=== PATIENT | female | born 1945 | race Hispanic/Latino ===

== ENCOUNTER 2021-12-17 17:09 | Emergency (ER) | payer MEDICARE, OTHER ==
[2021-12-17] MEDS ORDERED: Bupivacaine PF 0.5% 30 ML VIAL ONE (18:08)
== END 2021-12-17 18:28 | disposition home or self-care (01) ==
LOC: CSHERS 17:09
DX: M54.2 Cervicalgia (principal); H92.01 Otalgia, right ear; E11.9 Type 2 diabetes mellitus without complications; I10 Essential (primary) hypertension
CPT/HCPCS: 99283; S0020

== ENCOUNTER 2022-07-30 18:45 | Emergency (ER) | payer OTHER ==
[2022-07-30] MEDS ORDERED: Acetaminophen 500 MG TAB ONE (20:44)
[2022-07-30 20:48] LABS: ALT (SGPT) 14 U/L (8-55); AST (SGOT) 27 U/L (5-34); Albumin 3.9 g/dL (3.4-4.8); Alkaline Phosphatase 76 U/L (40-110); Anion Gap 13 mmol/L (10-20); BUN (Urea Nitrogen) 27 mg/dL (9.8-20.1); Bilirubin, Total 0.5 mg/dL (0.2-1.2); CK (CPK) 641 U/L (29-168); Calc. Creatinine Clearance 0 mL/min (70-130); Calcium 9.9 mg/dL (7.8-10.44); Carbon Dioxide 25 mmol/L (23-31); Chloride 100 mmol/L (98-107); Estimated GFR 63; Globulin 3.3 g/dL (2.4-3.5); Glucose 216 mg/dL (83-110); Potassium 4.2 mmol/L (3.5-5.1); Protein, Total 7.2 g/dL (5.8-8.1); Sodium 134 mmol/L (136-145)
[2022-07-30 20:54] LABS: #Monocytes 0.6 10x3/uL (0.0-1.1); #Neutrophils 5.8 10x3/uL (1.5-8.4); %Basophils 0.3 % (0.0-2.0); %Eosinophils 0.1 % (0.0-6.0); %Monocytes 8.3 % (0.0-10.0); Hemoglobin 11.8 g/dL (12.0-15.5); Mean Corpuscular HGB CONC 33.1 g/dL (32.0-36.0); Mean Corpuscular Hemoglobin 27.7 pg (27.0-33.0); Mean Corpuscular Volume 83.6 fl (81.6-98.3); Mean Platelet Volume 12.6 fl (7.4-10.4); Platelet Count 64 10x3/uL (150-450); RBC Distribution Width 15.3 % (11.5-14.5); Red Blood Cell (RBC) Count 4.26 10x6/uL (3.90-5.03); White Blood Cell (WBC) Count 6.9 10x3/uL (3.5-10.5)
[2022-07-30 22:21] LABS: Bilirubin Neg (Negative); Blood, Urine 150 (Negative); Clarity Cloudy (Clear); Glucose, Urine (Dipstick) Normal (Negative); Ketone, Urine Negative (Negative); Leukocyte 500 (Negative); Nitrite Positive (Negative); Protein, Urine (Dipstick) 100 mg/dl (Neg-Trace); Urobilinogen Normal mg/dL (Less than 2)
[2022-07-30 22:31] LABS: Bacteria/HPF 3+ HPF (None Seen); Squamous Epithelial 0-3 HPF (0-3); WBC/HPF 21-50 HPF (0-3)
[2022-07-30] MEDS ORDERED: Sulfameth/Trimethoprim DS 800-160mg TAB ONE (23:10)
== END 2022-07-31 00:05 | disposition home or self-care (01) ==
LOC: CSHERS 18:45
DX: N30.01 Acute cystitis with hematuria (principal); M51.36 Other intervertebral disc degeneration, lumbar region; M19.09 Primary osteoarthritis, other specified site; E78.5 Hyperlipidemia, unspecified; I10 Essential (primary) hypertension; E11.40 Type 2 diabetes mellitus with diabetic neuropathy, unspecified
CPT/HCPCS: 72192; 80053; 81003; 81015; 82550; 85025; 87077; 87086

== ENCOUNTER 2023-04-30 11:47 | Emergency (ER) | payer OTHER ==
[2023-04-30] MEDS ORDERED: Acetaminophen 500 MG TAB ONE (12:16)
== END 2023-04-30 15:13 | disposition home or self-care (01) ==
LOC: CSHERS 11:47
DX: M17.11 Unilateral primary osteoarthritis, right knee (principal); R60.0 Localized edema; I10 Essential (primary) hypertension; E11.40 Type 2 diabetes mellitus with diabetic neuropathy, unspecified
CPT/HCPCS: 93970

== ENCOUNTER 2023-06-29 05:10 | Inpatient (IN) | payer OTHER, MEDICAID, MEDICARE ==
[2023-06-29] MEDS ORDERED: Propofol 1,000 MG/100 ML VIAL IV ONE (05:25)
[2023-06-29] MEDS ORDERED: Pantoprazole 40 MG VIAL ONE ×2 (05:25→06:15)
[2023-06-29] MEDS ORDERED: LevoFLOXacin 750 mg/D5W 150 ml Premix Bag ONE ×2 (05:40→06:15)
[2023-06-29] MEDS ORDERED: Midazolam HCl 10 mg/2 ml Vial ONE (05:42)
[2023-06-29] MEDS ORDERED: fentaNYL 50 mcg/mL 1 mL Vial ONE (05:43)
[2023-06-29] MEDS ORDERED: Clindamycin/D5W 600 MG in Premix 1 BAG IVPB SCH (05:45)
[2023-06-29] MEDS ORDERED: Acetaminophen 650 MG Suppository ONE (05:49)
[2023-06-29 06:09] LABS: Prothrombin Time 10.6 sec (9.5-12.1)
[2023-06-29 06:10] LABS: Hematocrit 35.2 % (34.9-44.5); Hemoglobin 12.2 g/dL (12.0-15.5); Mean Corpuscular HGB CONC 34.7 g/dL (32.0-36.0); Mean Corpuscular Volume 86.7 fl (81.6-98.3); Mean Platelet Volume 13.2 fl (7.4-10.4); Platelet Count 41 10x3/uL (150-450); RBC Distribution Width 13.2 % (11.5-14.5); Red Blood Cell (RBC) Count 4.06 10x6/uL (3.90-5.03); White Blood Cell (WBC) Count 4.8 10x3/uL (3.5-10.5)
[2023-06-29 06:13] LABS: ALT (SGPT) 18 U/L (8-55); AST (SGOT) 26 U/L (5-34); Albumin 3.7 g/dL (3.4-4.8); Alkaline Phosphatase 81 U/L (40-110); Anion Gap 17 mmol/L (10-20); BUN (Urea Nitrogen) 34 mg/dL (9.8-20.1); Bilirubin, Total 0.4 mg/dL (0.2-1.2); Calc. Creatinine Clearance 0 mL/min (70-130); Carbon Dioxide 18 mmol/L (23-31); Chloride 105 mmol/L (98-107); Estimated GFR 57; Glucose 244 mg/dL (83-110); Lipase 14 U/L (8-78); Potassium 4.6 mmol/L (3.5-5.1); Protein, Total 6.7 g/dL (5.8-8.1); Sodium 135 mmol/L (136-145)
[2023-06-29] MEDS ORDERED: Pantoprazole 80 MG, Admixture Fee 1 EACH in Sodium Chloride 0.9% 100 ML IVPB SCH (06:15)
[2023-06-29 06:20] LABS: ALV-art Gradient 467.075 mmHg (0-20); Actual Bicarbonate (HCO3a) 19.3 mEq/L (22-28); Analyzer IN Cardio CS ER; CO2 Tension 30.1 mmHg (35.0-45.0); Carboxyhemoglobin (COHb) 0.3 gm% (0.0-3.0); Hematocrit-ABG 37 % (36.0-47.0); Hemoglobin (Hb) 12.5 g/dL (12.0-16.0); O2 Tension (PaO2), arterial 65.7 mmHg (> 70.0); Potassium - ABG Lab 4.03 mmol/L (3.70-5.30); Puncture Site LBA; pH, Arterial 7.425 (7.35-7.45)
[2023-06-29 06:24] LABS: MDiff Complete? YES
[2023-06-29 06:30] LABS: Critical Call Chem Troponin I NUR.EG @0627; Troponin I 1.065 ng/mL (< 0.028)
[2023-06-29 06:36] LABS: Bilirubin Neg (Negative); Blood, Urine 50 (Negative); Glucose, Urine (Dipstick) 250 mg/dL (Negative); Ketone, Urine 5 mg/dL (Negative); Leukocyte 500 (Negative); Nitrite Positive (Negative); Protein, Urine (Dipstick) 100 mg/dl (Neg-Trace); Specific Gravity, Urine 1.015 (1.005-1.030); Urobilinogen Normal mg/dL (Less than 2)
[2023-06-29 06:46] LABS: Platelet Adequacy Comment Appears Decreased; RBC Morph Comment Within Normal Limits
[2023-06-29 06:49] LABS: Band 14 % (5-11); Lymphocytes 21 % (21-51); Metamyelocyte 2 % (0-0); Monocytes 4 % (0-10); Neutrophil 59 % (42-75)
[2023-06-29 06:58] LABS: Clarity Hazy (Clear)
[2023-06-29 06:59] LABS: RBC/HPF 0-3 HPF (0-3)
[2023-06-29 07:00] LABS: Bacteria/HPF 4+ HPF (None Seen); CAUTI Indications for Culture Alt mental st,lethar; Squamous Epithelial 0-3 HPF (0-3)
[2023-06-29 07:02] LABS: Urine Culture Reflex Yes Yes
[2023-06-29 07:09] LABS: Influenza A by NAA DETECTED (NotDetected); Influenza B by NAA Not Detected (NotDetected); RSV by NAA Not Detected (NotDetected); SARS-CoV-2 NAA Rapid Test Not Detected (NotDetected)
[2023-06-29] MEDS ORDERED: Vancomycin 1.5 GM in Sodium Chloride 0.9% 500 ML IVPB SCH (07:15)
[2023-06-29] MEDS ORDERED: LevoFLOXacin 750 mg/D5W 750 MG in Premix 1 BAG IVPB SCH (07:15)
[2023-06-29] MEDS ORDERED: Dextrose 5% in Water 1,000 ML IV PRN (07:34)
[2023-06-29] MEDS ORDERED: Dextrose 50% Abboject 50 ML SYRINGE SLOW IVP PRN (07:34)
[2023-06-29 07:47] LABS: Magnesium 1.6 mg/dL (1.6-2.6)
[2023-06-29] MEDS ORDERED: Aspirin 300 MG Suppository PR SCH ×2 (09:00)
[2023-06-29 09:40] LABS: Lactic Acid 3.4 mmol/L (0.5-2.2)
[2023-06-29 09:49] LABS: Hematocrit 35.4 % (34.9-44.5); Hemoglobin 12.2 g/dL (12.0-15.5)
[2023-06-29 09:59] LABS: Troponin I 9.504 ng/mL (< 0.028)
[2023-06-29] MEDS: DEXMEDETOMIDINE IVPB SCH ×2 (11:28→12:07)
[2023-06-29] MEDS: NACL IVPB SCH ×2 (11:28→12:07)
[2023-06-29] MEDS ORDERED: Iopamidol 300 61% 100 ML VIAL FS ONE (11:29)
[2023-06-29] MEDS: Cefepime 2 GM in Sodium Chloride 0.9% 100 ML IVPB SCH ×2 (11:34→23:44)
[2023-06-29] MEDS: VANCOMYCIN 1.25 GM/250 ML BAG 1.25 GM in Premix 1 BAG IVPB SCH (11:35)
[2023-06-29] MEDS: Sodium Chloride 0.9% 1,000 ML IV SCH ×2 (11:35)
[2023-06-29] MEDS: Oseltamivir 6 MG/ML ORAL SUSP PO SCH (12:21)
[2023-06-29] MEDS: Lorazepam 2 MG/ML VIAL SLOW IVP PRN (12:25)
[2023-06-29] MEDS ORDERED: Fentanyl BOLUS 250 ML IVPB PRN (12:30)
[2023-06-29] MEDS ORDERED: FENTANYL 2,000MCG/100-0.9%NACL 100 ML IVPB SCH (12:30)
[2023-06-29] MEDS ORDERED: Propofol BOLUS 1,000 MG/100 ML VIAL IV PRN (12:30)
[2023-06-29 12:44] LABS: Anion Gap 12 mmol/L (10-20); BUN (Urea Nitrogen) 29 mg/dL (9.8-20.1); Calc. Creatinine Clearance 46 mL/min (70-130); Carbon Dioxide 21 mmol/L (23-31); Chloride 108 mmol/L (98-107); Estimated GFR 57; Glucose 201 mg/dL (83-110); Potassium 4.7 mmol/L (3.5-5.1); Sodium 136 mmol/L (136-145)
[2023-06-29 12:48] LABS: Hematocrit 31.6 % (34.9-44.5); Hemoglobin 10.7 g/dL (12.0-15.5); Platelet Count 46 10x3/uL (150-450)
[2023-06-29 12:53] LABS: Troponin I 12.907 ng/mL (< 0.028)
[2023-06-29 12:56] LABS: Actual Bicarbonate (HCO3a) 15.7 mEq/L (22-28); Analyzer IN Cardio CS ICU; CO2 Tension 26.8 mmHg (35.0-45.0); Calcium, Ionized (arterial) 1.12 mmol/L (1.12-1.30); Carboxyhemoglobin (COHb) 0.3 gm% (0.0-3.0); Hematocrit-ABG 34 % (36.0-47.0); Hemoglobin (Hb) 11.4 g/dL (12.0-16.0); O2 Tension (PaO2), arterial 80.5 mmHg (> 70.0); Potassium - ABG Lab 4.25 mmol/L (3.70-5.30); Puncture Site LBA; pH, Arterial 7.385 (7.35-7.45)
[2023-06-29] MEDS: Propofol 1,000 MG/100 ML VIAL IV PRN (13:12)
[2023-06-29] MEDS: Acetaminophen 650 MG Suppository PR PRN (13:40)
[2023-06-29] MEDS: Sodium Bicarb 50 mEq/50 ML VIAL IVP SCH (13:40)
[2023-06-29] MEDS: Aspirin 300 MG Suppository PR SCH (14:54)
[2023-06-29] MEDS: NOREPINEPHRINE 8 MG/250 ML-D5W 250 ML IVPB SCH (15:35)
[2023-06-29] MEDS: Pantoprazole 80 MG in Sodium Chloride 0.9% 100 ML IVP SCH (15:58)
[2023-06-30] MEDS: Pantoprazole 40 MG VIAL IVP SCH (03:11)
[2023-06-30 03:44] LABS: Anion Gap 16 mmol/L (10-20); BUN (Urea Nitrogen) 25 mg/dL (9.8-20.1); Calc. Creatinine Clearance 50 mL/min (70-130); Calcium 7.8 mg/dL (7.8-10.44); Carbon Dioxide 17 mmol/L (23-31); Chloride 112 mmol/L (98-107); Estimated GFR 63; Glucose 173 mg/dL (83-110); Potassium 3.9 mmol/L (3.5-5.1); Sodium 141 mmol/L (136-145)
[2023-06-30 04:24] LABS: Mean Corpuscular HGB CONC 34.3 g/dL (32.0-36.0); Mean Corpuscular Hemoglobin 30.1 pg (27.0-33.0); Mean Corpuscular Volume 87.7 fl (81.6-98.3); Mean Platelet Volume 12.7 fl (7.4-10.4); Platelet Count 80 10x3/uL (150-450); RBC Distribution Width 13.7 % (11.5-14.5); Red Blood Cell (RBC) Count 3.99 10x6/uL (3.90-5.03); White Blood Cell (WBC) Count 10.2 10x3/uL (3.5-10.5)
[2023-06-30 04:30] LABS: MDiff Complete? YES
[2023-06-30 04:51] LABS: Band 42 % (5-11); Lymphocytes 4 % (21-51); Metamyelocyte 27 % (0-0); Monocytes 3 % (0-10); Myelocyte 6 % (0-0); Neutrophil 15 % (42-75); Reactive Lymphocytes 3 % (0-10)
[2023-06-30 04:54] LABS: Reflex for Review?? YES
[2023-06-30 04:55] LABS: Platelet Adequacy Comment Appears Decreased
[2023-06-30] MEDS: Oseltamivir 6 MG/ML ORAL SUSP PO SCH (07:33)
[2023-06-30] MEDS: HumaLOG 300 UNITS/3 ML VIAL SC PRN (08:20)
[2023-06-30 10:46] LABS: Troponin I 12.463 ng/mL (< 0.028)
[2023-06-30] MEDS: Vancomycin 1 GM in Sodium Chloride 0.9% 250 ML 250 ML IVPB SCH (12:06)
[2023-06-30] MEDS ORDERED: EPINEPHrine 1 MG/10 ML Abboject SYRINGE ONE (12:33)
[2023-06-30] MEDS ORDERED: Communication Order-Pharmacy FS SCH (12:45)
[2023-07-01 03:31] LABS: INR-International Normal Ratio 1.3; PTT 47.3 sec (22.0-33.0); Prothrombin Time 13.5 sec (9.5-12.1)
[2023-07-01] MEDS ORDERED: Lidocaine 1% (PF) 30 ML VIAL ONE (06:34)
[2023-07-01] MEDS ORDERED: Verapamil 5 MG/2 ML VIAL ONE (06:34)
[2023-07-01] MEDS ORDERED: Heparin 10,000 UNITS/ 10 ML VIAL ONE (06:34)
[2023-07-01] MEDS ORDERED: Adenosine 6 mg (2 mL) VIAL ONE (06:34)
[2023-07-01] MEDS ORDERED: Atropine Sulfate 1 mg/1 ml Vial ONE (06:34)
[2023-07-01] MEDS ORDERED: Nitroglycerin 50 MG/250 ML BOT 250 ML ONE (06:34)
[2023-07-01] MEDS ORDERED: TICAGRELOR 90 MG TABLET ONE (07:14)
[2023-07-01] MEDS ORDERED: Nitroglycerin 0.4 MG TAB (25 Tab Bottle) SL PRN (09:04)
[2023-07-01] MEDS ORDERED: Sodium Chloride 0.9% 200 ML IV PRN (09:04)
[2023-07-01] MEDS ORDERED: Acetaminophen/Codeine 30-300mg Tablet PO PRN ×2 (09:04)
[2023-07-01] MEDS ORDERED: Iopamidol 300 61% 100 ML VIAL FS ONE (09:28)
[2023-07-01] MEDS: Oseltamivir 6 MG/ML ORAL SUSP PO SCH (10:05)
[2023-07-01 11:19] LABS: Vancomycin, Trough 7.7 ug/mL
[2023-07-01] MEDS: TICAGRELOR 90 MG TABLET PO SCH (21:09)
[2023-07-02] MEDS: Vancomycin 1 GM in Sodium Chloride 0.9% 250 ML 250 ML IVPB SCH (00:22)
[2023-07-02 05:22] LABS: Anion Gap 9 mmol/L (10-20); BUN (Urea Nitrogen) 18 mg/dL (9.8-20.1); Calc. Creatinine Clearance 61 mL/min (70-130); Calcium 7.7 mg/dL (7.8-10.44); Carbon Dioxide 18 mmol/L (23-31); Chloride 114 mmol/L (98-107); Estimated GFR 78; Glucose 243 mg/dL (83-110); Potassium 3.2 mmol/L (3.5-5.1); Sodium 138 mmol/L (136-145)
[2023-07-02 05:37] LABS: Analyzer IN Cardio CS ICU; Base Excess (BEa) -2.8 mEq/L (-2.0 to +3.0); CO2 Tension 27.8 mmHg (35.0-45.0); Calcium, Ionized (arterial) 1.17 mmol/L (1.12-1.30); Carboxyhemoglobin (COHb) 0.3 gm% (0.0-3.0); Critical Notified By: CP.PH; Hematocrit-ABG 28 % (36.0-47.0); Hemoglobin (Hb) 9.6 g/dL (12.0-16.0); O2 Tension (PaO2), arterial 84.1 mmHg (> 70.0); Puncture Site LBA; RapidComm Collect By CP.PH; pH, Arterial 7.474 (7.35-7.45)
[2023-07-02] MEDS: Potassium Chloride 40 MEQ in Premix 1 BAG IVPB SCH (08:56)
[2023-07-02 09:53] LABS: Hematocrit 19.1 % (34.9-44.5); Mean Corpuscular HGB CONC 34.6 g/dL (32.0-36.0); Mean Corpuscular Hemoglobin 29.3 pg (27.0-33.0); Mean Corpuscular Volume 84.9 fl (81.6-98.3); Mean Platelet Volume 12.3 fl (7.4-10.4); RBC Distribution Width 13.8 % (11.5-14.5); Red Blood Cell (RBC) Count 2.25 10x6/uL (3.90-5.03)
[2023-07-02 09:54] LABS: MDiff Complete? YES; Platelet Count 30 10x3/uL (150-450)
[2023-07-02 11:10] LABS: Band 2 % (5-11); Lymphocytes 6 % (21-51); Metamyelocyte 8 % (0-0); Neutrophil 84 % (42-75)
[2023-07-02 11:25] LABS: Platelet Adequacy Comment Appears Decreased
[2023-07-02 11:26] LABS: RBC Morph Comment Within Normal Limits
[2023-07-02 11:37] LABS: Hemoglobin 6.6 g/dL (12.0-15.5)
[2023-07-02] MEDS: Vancomycin HCl 750 MG in Sodium Chloride 0.9% 250 ML 250 ML IVPB SCH (11:41)
[2023-07-02 11:42] LABS: Hematocrit 20.9 % (34.9-44.5); Hemoglobin 7.5 g/dL (12.0-15.5)
[2023-07-02 11:43] LABS: Platelet Count 33 10x3/uL (150-450)
[2023-07-02] MEDS: Atorvastatin Calcium 40 MG TAB PO SCH (20:10)
[2023-07-02] MEDS: Metoprolol Tartrate 25 MG TAB PO SCH (20:10)
[2023-07-02 22:10] LABS: Vancomycin, Trough 23.9 ug/mL
[2023-07-03 03:04] LABS: Anion Gap 12 mmol/L (10-20); BUN (Urea Nitrogen) 19 mg/dL (9.8-20.1); Calc. Creatinine Clearance 58 mL/min (70-130); Calcium 7.9 mg/dL (7.8-10.44); Carbon Dioxide 17 mmol/L (23-31); Cardiac Risk 9.3 (Less than 4.5); Chloride 116 mmol/L (98-107); Cholesterol 102 mg/dl (< 200 Desired); Estimated GFR 74; Glucose 240 mg/dL (83-110); HDL Cholesterol 11 mg/dL (>60 Neg Risk); LDL Cholesterol, Calculated 56 mg/dL; Potassium 3.5 mmol/L (3.5-5.1); Sodium 141 mmol/L (136-145); Triglycerides 174 mg/dL (Less than 150)
[2023-07-03 03:35] LABS: #Monocytes 0.4 10x3/uL (0.0-1.1); #Neutrophils 4.5 10x3/uL (1.5-8.4); %Basophils 0.2 % (0.0-2.0); %Lymphocytes 8.7 % (18.0-47.0); %Monocytes 7.2 % (0.0-10.0); %Neutrophils 82.6 % (40.0-75.0); Hematocrit 24.1 % (34.9-44.5); Hemoglobin 8.5 g/dL (12.0-15.5); Mean Corpuscular HGB CONC 35.3 g/dL (32.0-36.0); Mean Corpuscular Hemoglobin 29.3 pg (27.0-33.0); Mean Corpuscular Volume 83.1 fl (81.6-98.3); Mean Platelet Volume 12.2 fl (7.4-10.4); Platelet Count 38 10x3/uL (150-450); RBC Distribution Width 14.5 % (11.5-14.5); White Blood Cell (WBC) Count 5.4 10x3/uL (3.5-10.5)
[2023-07-03 04:05] LABS: Actual Bicarbonate (HCO3a) 19.2 mEq/L (22-28); Analyzer IN Cardio CS ICU; Base Excess (BEa) -2.3 mEq/L (-2.0 to +3.0); CO2 Tension 22.8 mmHg (35.0-45.0); Calcium, Ionized (arterial) 1.17 mmol/L (1.12-1.30); Carboxyhemoglobin (COHb) 0.2 gm% (0.0-3.0); Hematocrit-ABG 26 % (36.0-47.0); Hemoglobin (Hb) 8.9 g/dL (12.0-16.0); Puncture Site RRA; pH, Arterial 7.544 (7.35-7.45)
[2023-07-03] MEDS: Vancomycin HCl 750 MG in Sodium Chloride 0.9% 250 ML 250 ML IVPB SCH (09:26)
[2023-07-03] MEDS: Insulin NPH Human Isophane 100 UNITS/ML (10 ML VIAL) SC SCH (09:27)
[2023-07-03] MEDS: Aspirin 81 mg Enteric Coated Tablet PO SCH (09:28)
[2023-07-03] MEDS: QUEtiapine 25 MG TAB PO SCH (09:28)
[2023-07-03] MEDS: Acetaminophen 650 MG/20.3 ML UDCUP PO PRN (13:16)
[2023-07-03] MEDS: Metoprolol Tartrate 50 MG TAB PO SCH (20:42)
[2023-07-04 04:21] LABS: Hematocrit 25.7 % (34.9-44.5); Hemoglobin 9.1 g/dL (12.0-15.5); Mean Corpuscular HGB CONC 35.4 g/dL (32.0-36.0); Mean Corpuscular Hemoglobin 29.9 pg (27.0-33.0); Mean Corpuscular Volume 84.5 fl (81.6-98.3); Mean Platelet Volume 12.3 fl (7.4-10.4); Platelet Count 54 10x3/uL (150-450); RBC Distribution Width 14.9 % (11.5-14.5); Red Blood Cell (RBC) Count 3.04 10x6/uL (3.90-5.03); White Blood Cell (WBC) Count 5.7 10x3/uL (3.5-10.5)
[2023-07-04 04:22] LABS: Anion Gap 10 mmol/L (10-20); BUN (Urea Nitrogen) 17 mg/dL (9.8-20.1); Calc. Creatinine Clearance 59 mL/min (70-130); Calcium 7.9 mg/dL (7.8-10.44); Carbon Dioxide 18 mmol/L (23-31); Chloride 113 mmol/L (98-107); Estimated GFR 76; Glucose 282 mg/dL (83-110); Potassium 3.4 mmol/L (3.5-5.1); Sodium 138 mmol/L (136-145)
[2023-07-04 04:56] LABS: ALV-art Gradient 162.275 mmHg (0-20); Actual Bicarbonate (HCO3a) 19.4 mEq/L (22-28); Analyzer IN Cardio CS ICU; Base Excess (BEa) -2.1 mEq/L (-2.0 to +3.0); CO2 Tension 26.1 mmHg (35.0-45.0); Calcium, Ionized (arterial) 1.15 mmol/L (1.12-1.30); Carboxyhemoglobin (COHb) 0.9 gm% (0.0-3.0); Critical Notified By: CP.PH; Hematocrit-ABG 45 % (36.0-47.0); Hemoglobin (Hb) 15.4 g/dL (12.0-16.0); O2 Tension (PaO2), arterial 90.3 mmHg (> 70.0); Potassium - ABG Lab 3.18 mmol/L (3.70-5.30); Puncture Site LRA; RapidComm Collect By CP.PH
[2023-07-04 05:08] LABS: Band 13 % (5-11); Lymphocytes 9 % (21-51); Monocytes 13 % (0-10); Neutrophil 64 % (42-75)
[2023-07-04 05:09] LABS: Ovalocytes SLIGHT = 2-5 cells (100X) (0-1/hpf); Platelet Adequacy Comment Appears Decreased
[2023-07-04 05:15] LABS: MDiff Complete? YES
[2023-07-04] MEDS: Metoprolol Tartrate 50 MG TAB PO SCH (08:15)
[2023-07-04] MEDS: Lisinopril 5 MG TAB PO SCH (08:15)
[2023-07-04] MEDS: Insulin NPH Human Isophane 100 UNITS/ML (10 ML VIAL) SC SCH (09:43)
[2023-07-04 20:48] LABS: Vancomycin, Trough 16.1 ug/mL
[2023-07-05] MEDS: Pantoprazole 40 MG VIAL IVP SCH (01:32)
[2023-07-05 03:50] LABS: Actual Bicarbonate (HCO3a) 21.1 mEq/L (22-28); Analyzer IN Cardio CS ICU; Base Excess (BEa) -1.3 mEq/L (-2.0 to +3.0); CO2 Tension 26.2 mmHg (35.0-45.0); Calcium, Ionized (arterial) 1.14 mmol/L (1.12-1.30); Carboxyhemoglobin (COHb) 0.5 gm% (0.0-3.0); Critical Notified By: CP.PH; Hematocrit-ABG 22 % (36.0-47.0); Hemoglobin (Hb) 7.6 g/dL (12.0-16.0); O2 Tension (PaO2), arterial 72.4 mmHg (> 70.0); Potassium - ABG Lab 2.89 mmol/L (3.70-5.30); Puncture Site LRA; RapidComm Collect By CP.PH; pH, Arterial 7.523 (7.35-7.45)
[2023-07-05 04:45] LABS: Hematocrit 22.6 % (34.9-44.5); Hemoglobin 7.9 g/dL (12.0-15.5); Mean Corpuscular Hemoglobin 28.7 pg (27.0-33.0); Mean Corpuscular Volume 82.2 fl (81.6-98.3); Mean Platelet Volume 12.5 fl (7.4-10.4); Platelet Count 86 10x3/uL (150-450); RBC Distribution Width 14.4 % (11.5-14.5); Red Blood Cell (RBC) Count 2.75 10x6/uL (3.90-5.03)
[2023-07-05 04:55] LABS: Anion Gap 10 mmol/L (10-20); BUN (Urea Nitrogen) 17 mg/dL (9.8-20.1); Calc. Creatinine Clearance 63 mL/min (70-130); Calcium 7.8 mg/dL (7.8-10.44); Carbon Dioxide 19 mmol/L (23-31); Chloride 109 mmol/L (98-107); Estimated GFR 82; Glucose 274 mg/dL (83-110); Sodium 135 mmol/L (136-145)
[2023-07-05 05:06] LABS: Band 1 % (5-11); Eosinophils 1 % (0-10); Lymphocytes 12 % (21-51); Monocytes 7 % (0-10); Myelocyte 2 % (0-0); Neutrophil 77 % (42-75)
[2023-07-05 05:08] LABS: MDiff Complete? YES; Ovalocytes SLIGHT = 2-5 cells (100X) (0-1/hpf); Platelet Adequacy Comment Appears Decreased; Polychromasia SLIGHT = 2-3 cells (100X) (0-2/hpf)
[2023-07-06 03:34] LABS: Hematocrit 24.6 % (34.9-44.5); Hemoglobin 8.7 g/dL (12.0-15.5); Mean Corpuscular HGB CONC 35.4 g/dL (32.0-36.0); Mean Corpuscular Hemoglobin 29.3 pg (27.0-33.0); Mean Corpuscular Volume 82.8 fl (81.6-98.3); Mean Platelet Volume 12.8 fl (7.4-10.4); Platelet Count 134 10x3/uL (150-450); RBC Distribution Width 14.3 % (11.5-14.5); Red Blood Cell (RBC) Count 2.97 10x6/uL (3.90-5.03); White Blood Cell (WBC) Count 8.5 10x3/uL (3.5-10.5)
[2023-07-06 03:40] LABS: Anion Gap 11 mmol/L (10-20); BUN (Urea Nitrogen) 16 mg/dL (9.8-20.1); Calc. Creatinine Clearance 63 mL/min (70-130); Calcium 7.5 mg/dL (7.8-10.44); Carbon Dioxide 20 mmol/L (23-31); Chloride 106 mmol/L (98-107); Estimated GFR 82; Glucose 233 mg/dL (83-110); Potassium 2.9 mmol/L (3.5-5.1); Sodium 134 mmol/L (136-145)
[2023-07-06 04:05] LABS: Band 8 % (5-11); Lymphocytes 6 % (21-51); Metamyelocyte 1 % (0-0); Monocytes 1 % (0-10); Myelocyte 2 % (0-0); Neutrophil 81 % (42-75)
[2023-07-06 04:07] LABS: Ovalocytes SLIGHT = 2-5 cells (100X) (0-1/hpf); Platelet Adequacy Comment Appears Decreased; Polychromasia SLIGHT = 2-3 cells (100X) (0-2/hpf); Spherocytes SLIGHT = 1-5 cells (100X) (None Seen)
[2023-07-06 04:25] LABS: MDiff Complete? YES
[2023-07-06 05:28] LABS: ALV-art Gradient 171.525 mmHg (0-20); Analyzer IN Cardio CS ICU; Base Excess (BEa) -0.9 mEq/L (-2.0 to +3.0); CO2 Tension 25.1 mmHg (35.0-45.0); Calcium, Ionized (arterial) 1.09 mmol/L (1.12-1.30); Carboxyhemoglobin (COHb) 0.2 gm% (0.0-3.0); Hematocrit-ABG 26 % (36.0-47.0); Hemoglobin (Hb) 8.7 g/dL (12.0-16.0); O2 Tension (PaO2), arterial 82.3 mmHg (> 70.0); Potassium - ABG Lab 2.69 mmol/L (3.70-5.30); Puncture Site RRA
[2023-07-06] MEDS: Potassium Chloride 20 MEQ TAB PO SCH (08:35)
[2023-07-06 09:03] LABS: Vancomycin, Trough 15.1 ug/mL
[2023-07-06] MEDS: Dexmedetomidine In 0.9 % NaCl 100 ML ONE (10:48)
[2023-07-06] MEDS: Potassium Bicarbonate/Cit Ac 20 MEQ TAB PO SCH (21:16)
[2023-07-06] MEDS: Albumin 25% 25 GM (100 mL) BOT IVPB SCH (22:40)
[2023-07-06] MEDS: NOREPINEPHRINE 8 MG/250 ML-D5W 250 ML ONE (23:05)
[2023-07-06] MEDS ORDERED: NOREPINEPHRINE 8 MG/250 ML-D5W 250 ML IVPB SCH (23:15)
[2023-07-06] MEDS ORDERED: Glucagon 1 MG/ML KIT IVP SCH ×2 (23:45→23:46)
[2023-07-06 23:47] LABS: #Basophils 0.1 10x3/uL (0.0-0.2); #Eosinphils 0.2 10x3/uL (0.0-0.5); #Monocytes 0.6 10x3/uL (0.0-1.1); #Neutrophils 8.2 10x3/uL (1.5-8.4); %Basophils 0.5 % (0.0-2.0); %Eosinophils 2.3 % (0.0-6.0); %Lymphocytes 8.5 % (18.0-47.0); %Monocytes 5.9 % (0.0-10.0); %Neutrophils 78.3 % (40.0-75.0); Hematocrit 21.1 % (34.9-44.5); Hemoglobin 7.2 g/dL (12.0-15.5); Mean Corpuscular HGB CONC 34.1 g/dL (32.0-36.0); Mean Corpuscular Hemoglobin 28.7 pg (27.0-33.0); Mean Corpuscular Volume 84.1 fl (81.6-98.3); Mean Platelet Volume 12.9 fl (7.4-10.4); Platelet Count 188 10x3/uL (150-450); RBC Distribution Width 14.6 % (11.5-14.5); Red Blood Cell (RBC) Count 2.51 10x6/uL (3.90-5.03); White Blood Cell (WBC) Count 10.5 10x3/uL (3.5-10.5)
[2023-07-06] MEDS: Ondansetron PF 4 MG/2 ML Vial IVP SCH (23:54)
[2023-07-06] MEDS: Glucagon 1 MG/ML KIT IM PRN (23:55)
[2023-07-07 00:04] LABS: Anion Gap 11 mmol/L (10-20); BUN (Urea Nitrogen) 18 mg/dL (9.8-20.1); Calc. Creatinine Clearance 58 mL/min (70-130); Calcium 7.5 mg/dL (7.8-10.44); Carbon Dioxide 19 mmol/L (23-31); Chloride 109 mmol/L (98-107); Estimated GFR 74; Glucose 204 mg/dL (83-110); Potassium 4.5 mmol/L (3.5-5.1); Sodium 134 mmol/L (136-145)
[2023-07-07] MEDS: Morphine 2 MG/ML VIAL SLOW IVP PRN (02:54)
[2023-07-07 03:49] LABS: Hematocrit 25.2 % (34.9-44.5); Hemoglobin 8.8 g/dL (12.0-15.5); Mean Corpuscular HGB CONC 34.9 g/dL (32.0-36.0); Mean Corpuscular Hemoglobin 29.5 pg (27.0-33.0); Mean Corpuscular Volume 84.6 fl (81.6-98.3); Mean Platelet Volume 12.5 fl (7.4-10.4); Platelet Count 212 10x3/uL (150-450); RBC Distribution Width 14.6 % (11.5-14.5); Red Blood Cell (RBC) Count 2.98 10x6/uL (3.90-5.03); White Blood Cell (WBC) Count 13.2 10x3/uL (3.5-10.5)
[2023-07-07 04:04] LABS: Anion Gap 11 mmol/L (10-20); BUN (Urea Nitrogen) 19 mg/dL (9.8-20.1); Calc. Creatinine Clearance 58 mL/min (70-130); Calcium 7.9 mg/dL (7.8-10.44); Carbon Dioxide 20 mmol/L (23-31); Chloride 108 mmol/L (98-107); Estimated GFR 74; Glucose 196 mg/dL (83-110); Potassium 4.1 mmol/L (3.5-5.1); Sodium 135 mmol/L (136-145)
[2023-07-07 04:17] LABS: Band 2 % (5-11); Eosinophils 3 % (0-10); Lymphocytes 8 % (21-51); Metamyelocyte 2 % (0-0); Monocytes 8 % (0-10); Myelocyte 4 % (0-0); Neutrophil 73 % (42-75)
[2023-07-07 04:18] LABS: Hypochromia MODERATE=16-30 cells (100X) (0-5/hpf); MDiff Complete? YES; Platelet Adequacy Comment Appears Adequate
[2023-07-07] MEDS: Lactated Ringer's 1,000 ML IV SCH (05:03)
[2023-07-07 10:18] LABS: #Basophils 0.1 10x3/uL (0.0-0.2); #Eosinphils 0.2 10x3/uL (0.0-0.5); #Monocytes 0.6 10x3/uL (0.0-1.1); #Neutrophils 8.8 10x3/uL (1.5-8.4); %Basophils 0.5 % (0.0-2.0); %Lymphocytes 7.2 % (18.0-47.0); %Monocytes 5.5 % (0.0-10.0); %Neutrophils 80.3 % (40.0-75.0); Hematocrit 26.1 % (34.9-44.5); Hemoglobin 9.1 g/dL (12.0-15.5); Mean Corpuscular HGB CONC 34.9 g/dL (32.0-36.0); Mean Corpuscular Hemoglobin 29.2 pg (27.0-33.0); Mean Corpuscular Volume 83.7 fl (81.6-98.3); Mean Platelet Volume 12.1 fl (7.4-10.4); Platelet Count 180 10x3/uL (150-450); RBC Distribution Width 14.6 % (11.5-14.5); Red Blood Cell (RBC) Count 3.12 10x6/uL (3.90-5.03)
[2023-07-07 10:28] LABS: Anion Gap 12 mmol/L (10-20); BUN (Urea Nitrogen) 17 mg/dL (9.8-20.1); Calc. Creatinine Clearance 62 mL/min (70-130); Calcium 7.9 mg/dL (7.8-10.44); Carbon Dioxide 20 mmol/L (23-31); Chloride 108 mmol/L (98-107); Estimated GFR 81; Glucose 178 mg/dL (83-110); Potassium 4.2 mmol/L (3.5-5.1); Sodium 136 mmol/L (136-145)
[2023-07-07 13:17] LABS: Platelet Adequacy Comment PLT clumps seen-ADEQ
[2023-07-07] MEDS: Metoprolol Tartrate 25 MG TAB PO SCH (21:30)
[2023-07-08 03:47] LABS: #Basophils 0.1 10x3/uL (0.0-0.2); #Eosinphils 0.2 10x3/uL (0.0-0.5); #Monocytes 0.5 10x3/uL (0.0-1.1); #Neutrophils 8.5 10x3/uL (1.5-8.4); %Basophils 0.5 % (0.0-2.0); %Lymphocytes 8.1 % (18.0-47.0); %Monocytes 5.1 % (0.0-10.0); %Neutrophils 80.7 % (40.0-75.0); Hematocrit 25.8 % (34.9-44.5); Mean Corpuscular HGB CONC 34.9 g/dL (32.0-36.0); Mean Corpuscular Hemoglobin 29.9 pg (27.0-33.0); Mean Corpuscular Volume 85.7 fl (81.6-98.3); Mean Platelet Volume 12.3 fl (7.4-10.4); Platelet Count 188 10x3/uL (150-450); RBC Distribution Width 14.7 % (11.5-14.5); Red Blood Cell (RBC) Count 3.01 10x6/uL (3.90-5.03); White Blood Cell (WBC) Count 10.6 10x3/uL (3.5-10.5)
[2023-07-08 03:50] LABS: Anion Gap 12 mmol/L (10-20); BUN (Urea Nitrogen) 16 mg/dL (9.8-20.1); Calc. Creatinine Clearance 60 mL/min (70-130); Calcium 7.9 mg/dL (7.8-10.44); Carbon Dioxide 21 mmol/L (23-31); Chloride 107 mmol/L (98-107); Estimated GFR 77; Glucose 173 mg/dL (83-110); Potassium 3.9 mmol/L (3.5-5.1); Sodium 136 mmol/L (136-145)
[2023-07-08] MEDS: Lisinopril 2.5 MG TAB PO SCH (08:52)
[2023-07-08 15:55] LABS: Actual Bicarbonate (HCO3a) 20.8 mEq/L (22-28); Analyzer IN Cardio CS ER; CO2 Tension 29.2 mmHg (35.0-45.0); Calcium, Ionized (arterial) 1.08 mmol/L (1.12-1.30); Carboxyhemoglobin (COHb) 0.3 gm% (0.0-3.0); Hematocrit-ABG 32 % (36.0-47.0); O2 Tension (PaO2), arterial 144.6 mmHg (> 70.0); Potassium - ABG Lab 4.13 mmol/L (3.70-5.30); Puncture Site RRA; pH, Arterial 7.471 (7.35-7.45)
[2023-07-08 15:55] LABS: ALV-art Gradient 167.925 mmHg (0-20); Actual Bicarbonate (HCO3a) 22.3 mEq/L (22-28); Analyzer IN Cardio CS ICU; Base Excess (BEa) -0.3 mEq/L (-2.0 to +3.0); CO2 Tension 29.5 mmHg (35.0-45.0); Calcium, Ionized (arterial) 1.17 mmol/L (1.12-1.30); Carboxyhemoglobin (COHb) 0.3 gm% (0.0-3.0); Hematocrit-ABG 29 % (36.0-47.0); O2 Tension (PaO2), arterial 80.4 mmHg (> 70.0); Potassium - ABG Lab 3.81 mmol/L (3.70-5.30); Puncture Site RRA; pH, Arterial 7.497 (7.35-7.45)
[2023-07-08] MEDS: Dexmedetomidine In 0.9 % NaCl 100 ML ONE (18:34)
[2023-07-09 03:33] LABS: Actual Bicarbonate (HCO3a) 23.5 mEq/L (22-28); Analyzer IN Cardio CS ICU; Base Excess (BEa) 2.1 mEq/L (-2.0 to +3.0); CO2 Tension 25.8 mmHg (35.0-45.0); Calcium, Ionized (arterial) 1.12 mmol/L (1.12-1.30); Carboxyhemoglobin (COHb) 0.3 gm% (0.0-3.0); Hematocrit-ABG 28 % (36.0-47.0); Hemoglobin (Hb) 9.6 g/dL (12.0-16.0); O2 Tension (PaO2), arterial 49.7 mmHg (> 70.0); Potassium - ABG Lab 3.84 mmol/L (3.70-5.30); Puncture Site RRA; pH, Arterial 7.577 (7.35-7.45)
[2023-07-09 04:25] LABS: #Basophils 0.1 10x3/uL (0.0-0.2); #Eosinphils 0.2 10x3/uL (0.0-0.5); #Monocytes 0.6 10x3/uL (0.0-1.1); #Neutrophils 7.5 10x3/uL (1.5-8.4); %Basophils 0.5 % (0.0-2.0); %Eosinophils 2.1 % (0.0-6.0); %Lymphocytes 10.1 % (18.0-47.0); %Monocytes 5.9 % (0.0-10.0); %Neutrophils 78.5 % (40.0-75.0); Hematocrit 25.2 % (34.9-44.5); Hemoglobin 8.9 g/dL (12.0-15.5); Mean Corpuscular HGB CONC 35.3 g/dL (32.0-36.0); Mean Corpuscular Hemoglobin 30.2 pg (27.0-33.0); Mean Corpuscular Volume 85.4 fl (81.6-98.3); Mean Platelet Volume 11.8 fl (7.4-10.4); Platelet Count 221 10x3/uL (150-450); RBC Distribution Width 14.4 % (11.5-14.5); Red Blood Cell (RBC) Count 2.95 10x6/uL (3.90-5.03); White Blood Cell (WBC) Count 9.6 10x3/uL (3.5-10.5)
[2023-07-09 04:53] LABS: Anion Gap 11 mmol/L (10-20); BUN (Urea Nitrogen) 16 mg/dL (9.8-20.1); Calc. Creatinine Clearance 60 mL/min (70-130); Carbon Dioxide 22 mmol/L (23-31); Chloride 107 mmol/L (98-107); Estimated GFR 77; Glucose 142 mg/dL (83-110); Sodium 136 mmol/L (136-145)
[2023-07-09] MEDS ORDERED: Rocuronium Bromide 10 MG/ML (10ML VIAL) ONE (09:11)
[2023-07-09] MEDS ORDERED: Midazolam HCl 5 mg/5 ml Vial ONE (09:11)
[2023-07-09] MEDS ORDERED: ePHEDrine Sulfate 50 MG/10 ML VIAL ONE ×2 (09:28→10:35)
[2023-07-09] MEDS ORDERED: fentaNYL 50 mcg/mL 1 mL Vial ONE (09:37)
[2023-07-09] MEDS ORDERED: Bupivacaine PF 0.5% 30 ML VIAL ONE (09:55)
[2023-07-09] MEDS ORDERED: EPINEPHrine 1 MG/10 ML Abboject SYRINGE ONE ×2 (10:27→10:54)
[2023-07-09] MEDS ORDERED: Sodium Bicarb 50 MEQ/50 ML Abboject 8.4% SYRINGE ONE (10:54)
[2023-07-09 11:02] LABS: Actual Bicarbonate (HCO3a) 15.8 mEq/L (22-28); Analyzer IN Cardio CS ICU; Base Excess (BEa) -9.3 mEq/L (-2.0 to +3.0); CO2 Tension 31.7 mmHg (35.0-45.0); Carboxyhemoglobin (COHb) 0.3 gm% (0.0-3.0); Hematocrit-ABG 32 % (36.0-47.0); Hemoglobin (Hb) 10.8 g/dL (12.0-16.0); O2 Tension (PaO2), arterial 234.6 mmHg (> 70.0); Potassium - ABG Lab 3.49 mmol/L (3.70-5.30); Puncture Site Other Site; RapidComm Collect By OR; pH, Arterial 7.315 (7.35-7.45)
[2023-07-09 11:06] LABS: ALV-art Gradient 438.775 mmHg (0-20)
[2023-07-09 11:36] VITALS: BMI 34.1
[2023-07-09 12:59] LABS: ALV-art Gradient 591.725 mmHg (0-20); Analyzer IN Cardio CS ICU; Base Excess (BEa) -2.5 mEq/L (-2.0 to +3.0); CO2 Tension 31.5 mmHg (35.0-45.0); Calcium, Ionized (arterial) 1.06 mmol/L (1.12-1.30); Carboxyhemoglobin (COHb) 0.1 gm% (0.0-3.0); Hematocrit-ABG 30 % (36.0-47.0); Hemoglobin (Hb) 10.2 g/dL (12.0-16.0); O2 Tension (PaO2), arterial 81.9 mmHg (> 70.0); Potassium - ABG Lab 3.54 mmol/L (3.70-5.30); Puncture Site Arterial Line; pH, Arterial 7.441 (7.35-7.45)
[2023-07-09 14:23] LABS: Critical Notified Whom: Taylir RN
[2023-07-09 17:39] VITALS: TEMP 98.3
[2023-07-10 04:23] LABS: #Eosinphils 0.2 10x3/uL (0.0-0.5); #Monocytes 0.4 10x3/uL (0.0-1.1); #Neutrophils 7.7 10x3/uL (1.5-8.4); %Basophils 0.4 % (0.0-2.0); %Eosinophils 1.6 % (0.0-6.0); %Monocytes 4.3 % (0.0-10.0); %Neutrophils 81.6 % (40.0-75.0); Hematocrit 24.6 % (34.9-44.5); Hemoglobin 8.6 g/dL (12.0-15.5); Mean Corpuscular Hemoglobin 30.2 pg (27.0-33.0); Mean Corpuscular Volume 86.3 fl (81.6-98.3); Mean Platelet Volume 11.8 fl (7.4-10.4); Platelet Count 283 10x3/uL (150-450); RBC Distribution Width 14.6 % (11.5-14.5); Red Blood Cell (RBC) Count 2.85 10x6/uL (3.90-5.03); White Blood Cell (WBC) Count 9.4 10x3/uL (3.5-10.5)
[2023-07-10 04:34] LABS: Anion Gap 15 mmol/L (10-20); BUN (Urea Nitrogen) 21 mg/dL (9.8-20.1); Calc. Creatinine Clearance 63 mL/min (70-130); Calcium 7.8 mg/dL (7.8-10.44); Carbon Dioxide 19 mmol/L (23-31); Chloride 106 mmol/L (98-107); Estimated GFR 73; Glucose 198 mg/dL (83-110); Potassium 3.9 mmol/L (3.5-5.1); Sodium 136 mmol/L (136-145)
[2023-07-10 06:46] LABS: ALV-art Gradient 311.175 mmHg (0-20); Actual Bicarbonate (HCO3a) 24.1 mEq/L (22-28); Analyzer IN Cardio CS ICU; Base Excess (BEa) 1.7 mEq/L (-2.0 to +3.0); CO2 Tension 30.1 mmHg (35.0-45.0); Carboxyhemoglobin (COHb) 0.3 gm% (0.0-3.0); Hematocrit-ABG 27 % (36.0-47.0); Hemoglobin (Hb) 9.3 g/dL (12.0-16.0); Potassium - ABG Lab 3.85 mmol/L (3.70-5.30); Puncture Site Arterial Line; pH, Arterial 7.522 (7.35-7.45)
[2023-07-10 10:18] LABS: Hematocrit 23.2 % (34.9-44.5); Hemoglobin 7.9 g/dL (12.0-15.5)
[2023-07-10] MEDS: NOREPINEPHRINE 8 MG/250 ML-D5W 250 ML IVPB SCH (10:29)
[2023-07-10] MEDS: Sodium Chloride 0.9% 1,000 ML IV SCH (10:30)
[2023-07-10 10:53] LABS: #Eosinphils 0.2 10x3/uL (0.0-0.5); #Monocytes 0.4 10x3/uL (0.0-1.1); #Neutrophils 7.5 10x3/uL (1.5-8.4); %Basophils 0.3 % (0.0-2.0); %Eosinophils 1.9 % (0.0-6.0); %Lymphocytes 7.2 % (18.0-47.0); %Monocytes 4.6 % (0.0-10.0); %Neutrophils 84.2 % (40.0-75.0); Hematocrit 21.7 % (34.9-44.5); Hemoglobin 7.5 g/dL (12.0-15.5); Mean Corpuscular HGB CONC 34.6 g/dL (32.0-36.0); Mean Corpuscular Hemoglobin 29.5 pg (27.0-33.0); Mean Corpuscular Volume 85.4 fl (81.6-98.3); Mean Platelet Volume 11.4 fl (7.4-10.4); Platelet Count 243 10x3/uL (150-450); RBC Distribution Width 14.4 % (11.5-14.5); Red Blood Cell (RBC) Count 2.54 10x6/uL (3.90-5.03); White Blood Cell (WBC) Count 8.9 10x3/uL (3.5-10.5)
[2023-07-10 11:07] LABS: Lactic Acid 0.6 mmol/L (0.5-2.2)
[2023-07-10 11:12] LABS: ALT (SGPT) 54 U/L (8-55); AST (SGOT) 45 U/L (5-34); Alkaline Phosphatase 51 U/L (40-110); Anion Gap 8 mmol/L (10-20); BUN (Urea Nitrogen) 19 mg/dL (9.8-20.1); Bilirubin, Total 0.7 mg/dL (0.2-1.2); Calc. Creatinine Clearance 65 mL/min (70-130); Calcium 7.3 mg/dL (7.8-10.44); Carbon Dioxide 22 mmol/L (23-31); Chloride 108 mmol/L (98-107); Estimated GFR 76; Globulin 2.4 g/dL (2.4-3.5); Glucose 155 mg/dL (83-110); Potassium 3.4 mmol/L (3.5-5.1); Protein, Total 4.4 g/dL (5.8-8.1); Sodium 135 mmol/L (136-145)
[2023-07-10] MEDS: NS 0.9% w/ 40 MEQ KCL 1,000 ML IV SCH (11:59)
[2023-07-10] MEDS: Vancomycin HCl 750 MG in Sodium Chloride 0.9% 250 ML 250 ML IVPB SCH (13:25)
[2023-07-10] MEDS: Cefepime 2 GM in Sodium Chloride 0.9% 100 ML IVPB SCH (13:26)
[2023-07-10 17:21] LABS: Hematocrit 22.3 % (34.9-44.5); Hemoglobin 7.6 g/dL (12.0-15.5)
[2023-07-11 04:10] LABS: Anion Gap 10 mmol/L (10-20); BUN (Urea Nitrogen) 18 mg/dL (9.8-20.1); Calc. Creatinine Clearance 70 mL/min (70-130); Calcium 7.4 mg/dL (7.8-10.44); Carbon Dioxide 19 mmol/L (23-31); Chloride 111 mmol/L (98-107); Estimated GFR 82; Glucose 185 mg/dL (83-110); Potassium 4.4 mmol/L (3.5-5.1); Sodium 136 mmol/L (136-145)
[2023-07-11 04:22] VITALS: BP 113/40
[2023-07-11 04:40] LABS: Mean Corpuscular Volume 88.2 fl (81.6-98.3)
[2023-07-11 04:45] LABS: #Eosinphils 0.2 10x3/uL (0.0-0.5); #Monocytes 0.4 10x3/uL (0.0-1.1); #Neutrophils 6.4 10x3/uL (1.5-8.4); %Basophils 0.5 % (0.0-2.0); %Eosinophils 2.4 % (0.0-6.0); %Lymphocytes 9.3 % (18.0-47.0); %Monocytes 5.4 % (0.0-10.0); %Neutrophils 80.4 % (40.0-75.0); Hematocrit 21.6 % (34.9-44.5); Hemoglobin 7.4 g/dL (12.0-15.5); Mean Corpuscular HGB CONC 34.3 g/dL (32.0-36.0); Mean Corpuscular Hemoglobin 30.2 pg (27.0-33.0); Mean Platelet Volume 11.7 fl (7.4-10.4); Platelet Count 254 10x3/uL (150-450); RBC Distribution Width 14.6 % (11.5-14.5); Red Blood Cell (RBC) Count 2.45 10x6/uL (3.90-5.03); White Blood Cell (WBC) Count 7.9 10x3/uL (3.5-10.5)
[2023-07-11 05:15] LABS: Actual Bicarbonate (HCO3a) 21.2 mEq/L (22-28); Analyzer IN Cardio CS ICU; Base Excess (BEa) -1.8 mEq/L (-2.0 to +3.0); CO2 Tension 28.6 mmHg (35.0-45.0); Calcium, Ionized (arterial) 1.13 mmol/L (1.12-1.30); Carboxyhemoglobin (COHb) 0.5 gm% (0.0-3.0); Critical Notified By: CP.PH; Hematocrit-ABG 21 % (36.0-47.0); Hemoglobin (Hb) 7.3 g/dL (12.0-16.0); O2 Tension (PaO2), arterial 94.1 mmHg (> 70.0); Puncture Site Arterial Line; RapidComm Collect By CP.PH; pH, Arterial 7.488 (7.35-7.45)
== END 2023-07-11 07:52 | disposition short-term general hospital (02) | DRG 3 ==
LOC: CSHERS 05:10 → CSHERHOLD 06:25 → MERGE 06:25 → CSHICU 08:43
PROVIDERS: ADMIT Family Medicine; ATTEND Internal Medicine
PROC: 02HV33Z Insertion of Infusion Device into Superior Vena Cava, Percutaneous Approach (ICD-10-PCS; principal; 2023-06-29)
PROC: 5A1955Z Respiratory Ventilation, Greater than 96 Consecutive Hours (ICD-10-PCS; 2023-06-29)
PROC: 4A133R1 Monitoring of Arterial Saturation, Peripheral, Percutaneous Approach (ICD-10-PCS; 2023-06-29)
PROC: 3E033XZ Introduction of Vasopressor into Peripheral Vein, Percutaneous Approach (ICD-10-PCS; 2023-06-29)
PROC: 3E03329 Introduction of Other Anti-infective into Peripheral Vein, Percutaneous Approach (ICD-10-PCS; 2023-06-29)
PROC: 0BH17EZ Insertion of Endotracheal Airway into Trachea, Via Natural or Artificial Opening (ICD-10-PCS; 2023-06-29)
PROC: 0DJ08ZZ Inspection of Upper Intestinal Tract, Via Natural or Artificial Opening Endoscopic (ICD-10-PCS; 2023-06-30)
PROC: 027034Z Dilation of Coronary Artery, One Artery with Drug-eluting Intraluminal Device, Percutaneous Approach (ICD-10-PCS; 2023-07-01)
PROC: 4A023N7 Measurement of Cardiac Sampling and Pressure, Left Heart, Percutaneous Approach (ICD-10-PCS; 2023-07-01)
PROC: B2111ZZ Fluoroscopy of Multiple Coronary Arteries using Low Osmolar Contrast (ICD-10-PCS; 2023-07-01)
PROC: B2151ZZ Fluoroscopy of Left Heart using Low Osmolar Contrast (ICD-10-PCS; 2023-07-01)
PROC: 30233N1 Transfusion of Nonautologous Red Blood Cells into Peripheral Vein, Percutaneous Approach (ICD-10-PCS; 2023-07-02)
PROC: 30233J1 Transfusion of Nonautologous Serum Albumin into Peripheral Vein, Percutaneous Approach (ICD-10-PCS; 2023-07-06)
PROC: 0W9930Z Drainage of Right Pleural Cavity with Drainage Device, Percutaneous Approach (ICD-10-PCS; 2023-07-09)
PROC: 5A12012 Performance of Cardiac Output, Single, Manual (ICD-10-PCS; 2023-07-09)
PROC: 0B113F4 Bypass Trachea to Cutaneous with Tracheostomy Device, Percutaneous Approach (ICD-10-PCS; 2023-07-09)
PROC: 0B113F4 Bypass Trachea to Cutaneous with Tracheostomy Device, Percutaneous Approach (ICD-10-PCS; 2023-07-11)
PROC: 0DH63UZ Insertion of Feeding Device into Stomach, Percutaneous Approach (ICD-10-PCS; 2023-07-11)
DX: I21.4 Non-ST elevation (NSTEMI) myocardial infarction (principal); A41.89 Other specified sepsis; G93.41 Metabolic encephalopathy; R65.21 Severe sepsis with septic shock; J96.01 Acute respiratory failure with hypoxia; J69.0 Pneumonitis due to inhalation of food and vomit; J10.08 Influenza due to other identified influenza virus with other specified pneumonia; I46.8 Cardiac arrest due to other underlying condition; R65.20 Severe sepsis without septic shock; A41.9 Sepsis, unspecified organism; I50.31 Acute diastolic (congestive) heart failure; J93.9 Pneumothorax, unspecified; K92.1 Melena; N39.0 Urinary tract infection, site not specified; D62 Acute posthemorrhagic anemia; I21.A1 Myocardial infarction type 2; E03.9 Hypothyroidism, unspecified; N18.31 Chronic kidney disease, stage 3a; E87.6 Hypokalemia; R53.1 Weakness; R53.81 Other malaise; I25.10 Atherosclerotic heart disease of native coronary artery without angina pectoris; E11.22 Type 2 diabetes mellitus with diabetic chronic kidney disease; D69.6 Thrombocytopenia, unspecified; I12.9 Hypertensive chronic kidney disease with stage 1 through stage 4 chronic kidney disease, or unspecified chronic kidney disease; E78.5 Hyperlipidemia, unspecified; E11.40 Type 2 diabetes mellitus with diabetic neuropathy, unspecified; Z88.0 Allergy status to penicillin; Z79.899 Other long term (current) drug therapy; Z88.8 Allergy status to other drugs, medicaments and biological substances; Z79.4 Long term (current) use of insulin; Z98.890 Other specified postprocedural states; Z11.52 Encounter for screening for COVID-19; E11.9 Type 2 diabetes mellitus without complications; D64.9 Anemia, unspecified; R13.12 Dysphagia, oropharyngeal phase; K46.9 Unspecified abdominal hernia without obstruction or gangrene; J10.1 Influenza due to other identified influenza virus with other respiratory manifestations
CPT/HCPCS: 0241U; 31500; 36140; 36415; 36416; 36430; 36600; 51702; 70450; 71045; 71260; 74177; 80048; 80053; 80061; 80202; 81001; 82805; 83605; 83690; 83735; 83880; 84145; 84484; 85025; 85060; 85347; 85610; 85730; 86850; 86900; 86901; 87040; 87070; 87077; 87081; 87086; 87186; 87205; 87324; 87449; 92928; 93005; 93010; 93306; 93458; 94002; 94003; 94760; 94762; 96365; 96366; 96367; 96368; 96375; 96376; C1751; C1760; C1769; C1874; C1894; C9113; C9600; J0153; J0171; J0360; J0461; J0665; J0692; J1611; J1630; J1644; J1650; J1815; J1940; J1956; J2001; J2060; J2185; J2250; J2272; J2405; J2543; J2704; J2765; J3010; J3370; J3480; J3490; J7030; J7050; J7120; J7999; P9016; P9047; Q9967